=== PATIENT | male | born 1995 | race Two or more races ===

== ENCOUNTER 2023-09-08 17:35 | Emergency (ER) | payer MEDICAID, OTHER ==
[~2023-09-08] VITALS: Ht 172.7 cm; Wt 111.2 kg
[2023-09-08 18:04] VITALS: BP 119/75; PULSE 93; RESP 16; O2SAT 96
[2023-09-08] MEDS ORDERED: HYDR2.5C39 TOP (21:40)
== END 2023-09-08 22:07 | disposition home or self-care (01) ==
LOC: ER 17:35
DX: K64.4 Residual hemorrhoidal skin tags (principal); Z79.899 Other long term (current) drug therapy
CPT/HCPCS: 74176